=== PATIENT | male | born 1975 | race Caucasian/White ===

== ENCOUNTER → 2023-10-09 14:10 | Outpatient (CLI) | payer OTHER, SELFPAY ==
--- NOTE | 2023-10-09 14:13 | DI.CT.S_ITS ---
PROCEDURE: CT LUMBAR SPINE WO CON INDICATIONS: Radiculopathy, lumbar region TECHNIQUE: Noncontrast 3 mm thick sections acquired from the T12 level to the sacrum. Sagittal and coronal reformats were constructed. For radiation dose reduction, the following was used: automated exposure control. COMPARISON: [facility] [place], CR, XR LUMBAR SPINE WITH OBLIQUES PLUS FLEXION EXTENSION, 08/25/2023, 9:14. FINDINGS: Image quality: Excellent. Bones: There is trace retrolisthesis L4 on L5. Minimal anterior osteophytes are present most prominent at L4. No visualized fracture or dislocation. Degenerative disc space narrowing is most prominent L5-S1. Minimal disc bulges at L3-4, L4-5. No spinal stenosis. Minimal right foraminal narrowing at L5-S1.. Mild facet hypertrophy. Soft tissues: No retroperitoneal masses or hematomas. Visualized aorta is normal in caliber. Minimal scattered diverticula are present. IMPRESSION: Degenerative changes most prominent L5-S1 demonstrating disc space narrowing as well as minimal right foraminal narrowing. Dictated by: Cheyenne Vicente M.D. on 10/09/2023 at 16:16 Approved by: Cheyenne Vicente M.D. on 10/09/2023 at 16:19
== END ==
LOC: CT 14:12
PROVIDERS: Referring Provider Physical Medicine & Rehabilitation Pain Medicine; Visit Provider Physical Medicine & Rehabilitation Pain Medicine
DX: M47.27 Other spondylosis with radiculopathy, lumbosacral region (principal)
CPT/HCPCS: 72131

== ENCOUNTER → 2025-02-22 11:57 | Outpatient (CLI) | payer OTHER, SELFPAY ==
--- NOTE | 2025-02-22 11:58 | DI.ECHO.S_ITS ---
[facility]---------+ [facility] : : [address] : : [place] : : [id number] : : Phone: [phone] Echocardiogram Report + + :Name: LIS TRACYE Study Date: 02/22/2025 Height: 71 in : :Hospital ReadingLocation: Weight: 240 lb : : Gender: Male BSA: 2.3 m2 : :: 1975 Age: 49 yrs BP: 131/80 mmHg: :Reason For Study: ATHERSCLEROTIC HEART DISEASE : :Ordering Physician: MAIRA, : :MITCH Performed By: Bernabe Patel : :Referring: MITCH RAO : + + Interpretation Summary The left ventricle is normal in size. The left ventricular ejection fraction is normal. The ejection fraction is estimated to be 60-65%. The right ventricle is normal in size and function. No significant valvular pathology seen The inferior vena cava was not visualized. Procedure: A two-dimensional transthoracic echocardiogram with color flow and Doppler was performed. The study quality was technically good. There is no prior echocardiogram noted for this patient. The patient was in normal sinus rhythm during the exam. Left Ventricle: The left ventricle is normal in size. There is normal left ventricular wall thickness. There is no thrombus. The ejection fraction is estimated to be 60-65%. The left ventricular ejection fraction is normal. There are no focal wall motion abnormalities. Diastolic parameters suggest probable normal left ventricular diastolic function and normal filling pressures. Right Ventricle: The right ventricle is normal in size and function. Atria: The left atrial size is normal. Right atrial size is normal. There is no Doppler evidence for an interatrial shunt. Mitral Valve: The mitral valve leaflets appear normal. There is no evidence of stenosis, fluttering, or prolapse. There is no mitral regurgitation noted. Aortic Valve: The aortic valve is trileaflet. The aortic valve opens well. There is no aortic valve stenosis. No aortic regurgitation is present. Tricuspid Valve: The tricuspid valve leaflets are thin and pliable. Pulmonary artery pressures cannot be estimated because of the lack of a measurable TR jet velocity. There is trace tricuspid regurgitation. Pulmonic Valve: The pulmonic valve is not well seen, but is grossly normal. There is no pulmonic valvular regurgitation. Great Vessels: The aortic root is normal size. The dimensions of the ascending aorta are normal. The pulmonary artery is normal size. The inferior vena cava was not visualized. Pericardium/ Pleura There is no pericardial effusion. MMode/2D Measurements & Calculations LVIDd: 5.1 cm LVOT diam: 2.0 cm LVIDs: 3.5 cm Ao root diam: 3.0 cm FS: 31.9 % asc Aorta Diam: 2.9 cm EPSS: 0.46 cm Ao Arch Diam (Prox Trans): 1.4 cm IVSd: 0.76 cm LVPWd: 0.78 cm LV reynolds. diameter/BSA (cm/m^2): 2.3 LV sys. diameter/BSA (cm/m^2): 1.5 LA A2 area: 18.2 cm2 RA long axis: 4.6 cm LA A4 area: 17.8 cm2 RA area: 17.2 cm2 LA length (vol): 5.7 cm RA vol: 55.3 ml LA vol: 48.2 ml RA : 24.3 ml/m2 LA vol index: 21.2 ml/m2 RVD1 (basal): 3.8 cm RVD2 (mid): 2.9 cm TAPSE: 2.4 cm Doppler Measurements & Calculations Ao V2 max: 146.1 cm/sec LVOT Max Elmo: 126.4 cm/sec Ao V2 mean: 102.5 cm/sec LV V1 max P.4 mmHg Ao max P.5 mmHg LV V1 VTI: 25.9 cm Ao mean P.6 mmHg JONATHAN(I,D): 3.1 cm2 Ao V2 VTI: 27.3 cm JONATHAN(V,D): 2.8 cm2 sev ratio: 0.95 JONATHAN indexed to BSA (cm^2/m^2): 1.4 MV E max elmo: 89.4 cm/sec PA V2 max: 113.5 cm/sec MV A max elmo: 62.1 cm/sec PA V2 mean: 78.0 cm/sec MV E/A: 1.4 PA mean P.8 mmHg Med Peak E' Elmo: 9.6 cm/sec PA pr(Accel): 49.9 mmHg E/E' med: 9.3 Lat Peak E' Elmo: 13.4 cm/sec E/E' lat: 6.7 E/e' average: 8.0 MV dec time: 0.18 sec SV(LVOT): 84.5 ml Reading Physician:02:43 PM
--- NOTE | 2025-02-22 13:30 | EKG_ITS ---
[address] [address] Test Date: 2025-02-22 Pat Name: Chuy Holley Department: DEFAULT Room: Gender: Male Nanny/Household Manager: ROBYN : 1975 Requested By: Order Number: [id number] Reading MD: Javi Bass Measurements Intervals [place] Rate: 74 P: 7 MD: 164 QRS: -9 QRSD: 84 T: -4 QT: 374 QTc: 415 Interpretive Statements Normal sinus rhythm Electronically Signed On 03-04-2025 13:39:59 PDT by Javi Bass
== END ==
PROVIDERS: Referring Provider Chiropractor; Visit Provider Chiropractor
DX: I25.10 Atherosclerotic heart disease of native coronary artery without angina pectoris (principal)
CPT/HCPCS: 93005; 93306